=== PATIENT | male | born 1995 | race Asian ===

== ENCOUNTER 2017-06-27 14:46 | Emergency (ER) | payer OTHER ==
[~2017-06-27] VITALS: Ht 175.3 cm; Wt 77.8 kg
[2017-06-27 14:49] VITALS: TEMP 36.7; Ht 175.3 cm; Wt 77.8 kg
--- NOTE | 2017-06-27 15:23 | EMERGENCY ROOM VISIT NOTE ---
History Report prepared by Yasir: Nikita Ordaz Under the Supervision of: Dr. Henrique Shah M.D. First contact with patient: 15:10 Chief Complaint: SEIZURE Stated Complaint: SEIZURE Nursing Triage Summary: pt was found at side of road, seizure witnessed by a bystander. pt has hx of seizures, last one when pt in 4th grade. takes no seizure meds. pt has had a cough, states he was awake all night coughing then took dayquil today. remembers he was walking to a restaraunt. then nothing until als with pt.. 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 The patient reports that the last thing he remembers is walking to meet his friends at a restaurant. He notes that he could not sleep last night secondary to a severe cough. The patient reports taking DayQuil this morning. He notes feeling fine now, and denies injuring any part of his body while fainting. The patient notes a history of seizures which began when he was in 4th grade.The patient states that he used to take Trileptal for seizures, but notes that he is not currently taking seizure medication. He denies experiencing any headaches, vision changes , neck pain, chest pain, shortness of breath, abdominal pain, or biting his tongue during the incident. He also denies any other medical problems or taking any regular medications. Source of History: patient Onset: 1 hour ago Position: other (global ) Timing: resolved Associated Symptoms: + LOC, + cough, No headache, No neck pain, No chest pain, No SOB, No abdominal pain Note: Denies: Biting tongue during incident, vision changes. Review of Systems See HPI for pertinent positives & negatives. A total of 10 systems reviewed and were otherwise negative. Past Medical & Surgical Medical Problems: (1) Seizure Old medical records were reviewed. Nurse's notes were reviewed and I agree with. Family History Patient reports no known family medical history. Social History Smoking Status: Never Smoker Alcohol Use: none Housing Status: lives with roommate Occupation Status: student Current/Historical Medications Scheduled PRN Awrzisbqpkhabodr-Cwkpwsberq-Mb (Vicks Nyquil Cold & Flu), 2 CAP PO HS PRN for COLD SYMPTOMS Dextromethorphan-Phenylephrine (Vicks Dayquil Cold & Flu), 2 CAP PO DAILY PRN for COLD SYMPTOMS Allergies Coded Allergies: No Known Allergies (Unverified , 06/27/17) Physical Exam Vital Signs Date Time Temp Pulse Resp B/P (MAP) Pulse Ox O2 Delivery O2 Flow Rate FiO2 06/27/17 18:22 90 18 155/75 97 Room Air 06/27/17 16:23 100 16 133/80 98 Room Air 06/27/17 15:11 105 06/27/17 14:49 36.7 108 18 147/78 96 Room Air Physical Exam General: Non-ill appearing young male in no acute distress. HEENT: Normal cephalic atraumatic. Pupils are equal round and reactive to light. Extraocular movements are intact. Oropharynx is pink with moist mucous membranes. No swelling of the mouth lips or tongue. Neck: Supple with a midline trachea. No meningeal signs or stiffness, no JVD or bruits. No Stridor. Chest: Clear to auscultation bilaterally. No wheezes or rhonchi. No increased work of breathing. Heart: regular rate and rhythm. Abdomen: Soft nontender, nondistended without rebound guarding or rigidity. Extremities: No cyanosis clubbing or edema. No calf tenderness or assymetry Spine/Back. Non tender to palpation. No CVA tenderness Skin: Good turgor without rashes. Neurologic exam: Cranial nerves two through 12 are intact. Motor and sensation are intact and symmetrical throughout. No tremor, finger nose intact. Medical Decision & Procedures ER Provider Diagnostic Interpretation: Radiology results as stated below per my review and radiologist interpretation: [~ rep ct add3]] CHEST ONE VIEW PORTABLE CLINICAL HISTORY: CHEST PAIN pain COMPARISON STUDY: No previous studies for comparison. FINDINGS: The bones soft tissues and hemidiaphragms are normal. The cardiomediastinal silhouette is normal. The lungs are clear. The pulmonary vasculature is normal. IMPRESSION: Negative chest. HEAD WITHOUT CONTRAST (CT) CT DOSE: 537.48 mGy.cm HISTORY: Seizure. Trauma. seizure, fall TECHNIQUE: Multiaxial CT images of the head were performed without the use of intravenous contrast. A dose lowering technique was utilized adhering to the principles of ALARA. Comparison: None. Findings: Mild mucosal thickening of the ethmoid and maxillary sinuses. Mastoid air cells are clear. The calvarium and skull base are intact. The ventricles and sulci are within normal limits. There is no mass, hematoma, midline shift, or acute infarct. Impression: Mild mucosal thickening of the sinuses. Negative CT of the brain. The above report was generated using voice recognition software. It may contain grammatical, syntax or spelling errors. The above report was generated using voice recognition software. It may contain grammatical, syntax or spelling errors. Electronically signed by: Gopal Garces M.D. 06/27/2017 3:31 PM Dictated Date/Time: 06/27/2017 3:31 PM Laboratory Results 06/27/17 15:00 Red Blood Count 5.01, Mean Corpuscular Volume 91.8, Mean Corpuscular Hemoglobin 31.3, Mean Corpuscular Hemoglobin Concent 34.1, Mean Platelet Volume 11.5, Neutrophils (%) (Auto) 50.2, Lymphocytes (%) (Auto) 32.0, Monocytes (%) (Auto) 15.0, Eosinophils (%) (Auto) 2.2, Basophils (%) (Auto) 0.3, Neutrophils # (Auto ) 8.38, Lymphocytes # (Auto) 5.33, Monocytes # (Auto) 2.51, Eosinophils # (Auto ) 0.36, Basophils # (Auto) 0.05 06/27/17 15:00 Test 06/27/17 15:00 06/27/17 15:30 06/27/17 17:39 White Blood Count 16.68 K/uL (4.8-10.8) Red Blood Count 5.01 M/uL (4.7-6.1) Hemoglobin 15.7 g/dL (14.0-18.0) Hematocrit 46.0 % (42-52) Mean Corpuscular Volume 91.8 fL (80-100) Mean Corpuscular Hemoglobin 31.3 pg (25-34) Mean Corpuscular Hemoglobin Concent 34.1 g/dl (32-36) Platelet Count 288 K/uL (130-400) Mean Platelet Volume 11.5 fL (7.4-10.4) Neutrophils (%) (Auto) 50.2 % Lymphocytes (%) (Auto) 32.0 % Monocytes (%) (Auto) 15.0 % Eosinophils (%) (Auto) 2.2 % Basophils (%) (Auto) 0.3 % Neutrophils # (Auto) 8.38 K/uL (1.4-6.5) Lymphocytes # (Auto) 5.33 K/uL (1.2-3.4) Monocytes # (Auto) 2.51 K/uL (0.11-0.59) Eosinophils # (Auto) 0.36 K/uL (0-0.5) Basophils # (Auto) 0.05 K/uL (0-0.2) RDW Standard Deviation 41.9 fL (36.4-46.3) RDW Coefficient of Variation 12.5 % (11.5-14.5) Immature Granulocyte % (Auto) 0.3 % Immature Granulocyte # (Auto) 0.05 K/uL (0.00-0.02) Est Creatinine Clear Calc Drug Dose 64.6 ml/min Estimated GFR () 60.6 Estimated GFR (Non- 52.3 BUN/Creatinine Ratio 8.8 (10-20) Calcium Level 9.4 mg/dl (8.5-10.1) Total Bilirubin 2.2 mg/dl (0.2-1) Direct Bilirubin 0.3 mg/dl (0-0.2) Aspartate Amino Transf (AST/SGOT) 26 U/L (15-37) Alanine Aminotransferase (ALT/SGPT) 35 U/L (12-78) Alkaline Phosphatase 112 U/L (45-117) Total Protein 9.0 gm/dl (6.4-8.2) Albumin 4.5 gm/dl (3.4-5.0) Lipase 76 U/L (73-393) Bedside Troponin I < 0.030 ng/ml (0-0.045) Bedside Hemoglobin 12.9 g/dl (14.0-18.0) Bedside Hematocrit 38 % (42-52) Bedside Sodium 139 mEq/L (135-144) Bedside Potassium 3.5 mEq/L (3.3-5.0) Bedside Chloride 104 mEq/L (101-112) Bedside Total CO2 22 mEq/l (24-31) Anion Gap 18.0 mmol/L (16-25) Bedside Blood Urea Nitrogen 14 mg/dl (7-18) Bedside Creatinine 1.0 mg/dl (0.6-1.3) Bedside Glucose (other) 83 mg/dl (70-99) Bedside Ionized Calcium (Hira) 1.12 mmol/l (1.12-1.32) Laboratory studies as stated above per my review. Medications Administered Medications (Trade) Dose Ordered Sig/Tricia Route Start Time Stop Time Status Last Admin Dose Admin Sodium Chloride 1,000 ml @ 999 mls/hr Q1H1M STAT IV 06/27/17 16:25 06/27/17 17:25 DC 06/27/17 16:38 999 MLS/HR ECG Per My Interpretation Rate (beats per minute): 94 Rhythm: normal sinus Findings: no acute ischemic change, no ectopy, other (Sinus arrythmia) ED Course 1510: Past medical records reviewed. The patient was evaluated in room A2, and a complete history and physical examination were performed. 1625: Ordered Sodium Chloride 1000 ml @ 999 mls/hr IV 1614: I reevaluated the patient. He is resting comfortably. 1630: I reevaluated the patient. He is non-ill appearing and talking on his cell phone. 1631: I discussed the patient's case with Dr. Christensen- [facility]. He states that he would not start the patient on anti-seizure medication at this time and would like to treat the patient as an outpatient. 1700: I reevaluated the patient. He is currently receiving fluids and resting. 1800: I reevaluated the patient. He is doing fine and is presently asymptomatic. I informed him that he cannot perform any activities where he could injure himself or others including driving. I sent the patient's paperwork to [facility]. 1801: Upon reevaluation, the patient is resting comfortably. I discussed the results and treatment plan with him. He verbalized agreement of the treatment plan. The patient was discharged home. Medical Decision Differentials include, but are not limited to; seizure, syncope, cardiac disease , arrhythmia, electrolyte or metabolic abnormality. This patient comes in as described above. He was treated for seizures for about 2 years in fourth grade. Has not had one since then. He stayed up all night because he was coughing and did not sleep. He apparently had a seizure today it was witnessed by somebody when he is walking. He does not recall what happened. IV access was established and blood work was obtained. seizure precautions were applied. he has remained stable and had no seizures while observed in the ER for over 3 hours. His initial blood work showed a low CO2 and high creatinine as well as a high white count. I hydrated him after this I recheck this on the i-STAT and these had normalized. I think this was from probably dehydration and a seizure because in the low CO2. He is asymptomatic and feels great. CAT scan of his head is unremarkable. I think his seizure was precipitated by standing up. I discussed case with Dr. Lombardo, the neurologist on-call he did not recommend loading him with antiepileptics at this point but feels he should be follow-up in the office for further workup. I gave him Dr. Lombardo's number and contact information. I also filled out the handout form and told the patient he cannot drive in until he is seizure free and cleared by neurology. He is to avoid any other activities such as swimming and driving where he could hurt himself or others if he had a seizure. He was encouraged to return if he has recurrence of symptoms, fever or chills, any new problems or concerns. He is happy to plan and discharged to home. Medication Reconcilliation Current Medication List: was personally reviewed by me Blood Pressure Screening Patient's blood pressure: Elevated blood pressure Blood pressure disposition: Elevated BP felt to be situational Consults Time Called: 1625 Consulting Physician: Dr. Montez [facility] Returned Call: 1631 I discussed the patient's case with Dr. Montez [facility]. He states that he would not start the patient on anti-seizure medication at this time and would like to treat the patient as an outpatient. Impression Primary Impression: Seizure Scribe Attestation The scribe's documentation has been prepared under my direction and personally reviewed by me in its entirety. I confirm that the note above accurately reflects all work, treatment, procedures, and medical decision making performed by me. Departure Information Dispostion Home / Self-Care Referrals No Doctor, Assigned (PCP) Forms HOME CARE DOCUMENTATION FORM, IMPORTANT VISIT INFORMATION Patient Instructions My [facility] Additional Instructions Rest. Drink plenty of fluids. Avoid any further activities where if he had a seizure you could hurt yourself or others, this would include swimming or driving. Follow-up with neurology Dr. Lombardo this week for recheck Return to the ER if worsening symptoms, any new problems or concerns, further seizure
[2017-06-27 15:26] LABS: HEMOGLOBIN 15.7 g/dL (14.0-18.0); MEAN CELL VOLUME 91.8 fL (80-100); MEAN CORPUSCULAR HEMOGLOBIN 31.3 pg (25-34); MEAN CORPUSCULAR HGB CONC 34.1 g/dl (32-36); MEAN PLATELET VOLUME 11.5 fL (7.4-10.4); PLATELET COUNT 288 K/uL (130-400); RED CELL DISTRIBUTION WIDTH CV 12.5 % (11.5-14.5); RED CELL DISTRIBUTION WIDTH SD 41.9 fL (36.4-46.3); WHITE BLOOD COUNT 16.68 K/uL (4.8-10.8)
--- NOTE | 2017-06-27 15:32 | DIAGNOSTIC IMAGING REPORT ---
CHEST ONE VIEW PORTABLE CLINICAL HISTORY: CHEST PAIN pain COMPARISON STUDY: No previous studies for comparison. FINDINGS: The bones soft tissues and hemidiaphragms are normal. The cardiomediastinal silhouette is normal. The lungs are clear. The pulmonary vasculature is normal. IMPRESSION: Negative chest. The above report was generated using voice recognition software. It may contain grammatical, syntax or spelling errors. Electronically signed by: Gopal Garces M.D. 06/27/2017 3:31 PM Dictated Date/Time: 06/27/2017 3:31 PM
--- NOTE | 2017-06-27 15:52 | DIAGNOSTIC IMAGING REPORT ---
HEAD WITHOUT CONTRAST (CT) CT DOSE: 537.48 mGy.cm HISTORY: Seizure. Trauma. seizure, fall TECHNIQUE: Multiaxial CT images of the head were performed without the use of intravenous contrast. A dose lowering technique was utilized adhering to the principles of ALARA. Comparison: None. Findings: Mild mucosal thickening of the ethmoid and maxillary sinuses. Mastoid air cells are clear. The calvarium and skull base are intact. The ventricles and sulci are within normal limits. There is no mass, hematoma, midline shift, or acute infarct. Impression: Mild mucosal thickening of the sinuses. Negative CT of the brain. The above report was generated using voice recognition software. It may contain grammatical, syntax or spelling errors. Electronically signed by: Gopal Garces M.D. 06/27/2017 3:50 PM Dictated Date/Time: 06/27/2017 3:49 PM
[2017-06-27 15:55] LABS: ALBUMIN 4.5 gm/dl (3.4-5.0); CALCIUM 9.4 mg/dl (8.5-10.1); CREATININE 1.81 mg/dl (0.60-1.40)
[2017-06-27 16:01] LABS: POTASSIUM 3.8 mmol/L (3.5-5.1)
[2017-06-27 16:17] LABS: BASO % 0.3 %; BASO ABS # 0.05 K/uL (0-0.2); EOS % 2.2 %; EOS ABS # 0.36 K/uL (0-0.5); IG# 0.05 K/uL (0.00-0.02); LYMPH ABS # 5.33 K/uL (1.2-3.4); MONO ABS # 2.51 K/uL (0.11-0.59); NEUT % 50.2 %; NEUT ABS # 8.38 K/uL (1.4-6.5)
[2017-06-27] MEDS ORDERED: SODIUM CHLORIDE 0.9% 1000ML 1,000 ML IV STA (16:25)
[2017-06-27] MEDS ORDERED: DEXT1CAP9 PO (16:57)
[2017-06-27] MEDS ORDERED: DEXT1CAP8 PO (17:00)
[2017-06-27 17:53] LABS: ISTAT IONIZED CALCIUM 1.12 mmol/l (1.12-1.32); ISTAT POTASSIUM 3.5 mEq/L (3.3-5.0)
[2017-06-27 18:22] VITALS: BP 155/75; PULSE 90; O2SAT 97
== END 2017-06-27 18:25 | disposition home or self-care (01) ==
LOC: EDBD 14:46 → C.EDA 14:49
DX: R56.9 Unspecified convulsions (principal)

== ENCOUNTER 2017-11-01 11:39 | Emergency (ER) | payer BC ==
[~2017-11-01] VITALS: Ht 177.8 cm; Wt 88.8 kg
[~2017-11-01 11:39] MED LIST: DEXT1CAP8 PO; DEXT1CAP9 PO
[2017-11-01 11:40] VITALS: TEMP 37; Ht 177.8 cm; Wt 88.8 kg
[2017-11-01 12:10] LABS: HEMATOCRIT 46.5 % (42-52); HEMOGLOBIN 15.1 g/dL (14.0-18.0); MEAN CELL VOLUME 94.9 fL (80-100); MEAN CORPUSCULAR HEMOGLOBIN 30.8 pg (25-34); MEAN CORPUSCULAR HGB CONC 32.5 g/dl (32-36); MEAN PLATELET VOLUME 12.1 fL (7.4-10.4); PLATELET COUNT 253 K/uL (130-400); RED CELL DISTRIBUTION WIDTH CV 12.3 % (11.5-14.5); RED CELL DISTRIBUTION WIDTH SD 42.5 fL (36.4-46.3); WHITE BLOOD COUNT 11.83 K/uL (4.8-10.8)
[2017-11-01 12:36] LABS: ALBUMIN 4.1 gm/dl (3.4-5.0); CALCIUM 9.1 mg/dl (8.5-10.1); CREATININE 1.37 mg/dl (0.60-1.40); POTASSIUM 3.8 mmol/L (3.5-5.1); TOTAL PROTEIN 8.5 gm/dl (6.4-8.2)
[2017-11-01 13:23] LABS: BASO % 0.3 %; BASO ABS # 0.04 K/uL (0-0.2); EOS % 3.6 %; EOS ABS # 0.42 K/uL (0-0.5); IG# 0.03 K/uL (0.00-0.02); LYMPH % 51.2 %; LYMPH ABS # 6.06 K/uL (1.2-3.4); MONO % 8.7 %; MONO ABS # 1.03 K/uL (0.11-0.59); NEUT % 35.9 %; NEUT ABS # 4.25 K/uL (1.4-6.5)
[2017-11-01] MEDS ORDERED: LEVETIRACETAM 500 MG TAB PO ONE (13:45)
[2017-11-01] MEDS ORDERED: LEVE500T13 PO (14:09)
--- NOTE | 2017-11-01 14:10 | EMERGENCY ROOM VISIT NOTE ---
History Report prepared by Yasir: Josue Hall Under the Supervision of: Dr. Mikael Phan D.O. First contact with patient: 12:21 Chief Complaint: SEIZURE Stated Complaint: SEIZURES History of Present Illness The patient is a 22 year old male who presents to the Emergency Room with complaints of an episode of a seizure occurring this morning. Per nursing report , the patient had a tonic-clonic seizure today in the dining murry. The report states that the patient's episode lasted for two minutes. The patient notes that he currently feels fine but is tired. He also complains of biting his tongue. He denies any incontinence, headache, sleep issues, recent illness, and recent alcohol use. He reports that he has a history of seizures but is not taking any medication. He states that his last seizure was in the last week of June,. He notes that at that time he was drinking alcohol and did not get much sleep, which might have caused his symptoms. He reports that before his seizure in June, his last seizure was when he was in 4th grade. Source of History: patient, other (nursing report) Onset: this morning Position: other (generalized) Quality: other (seizure) Timing: other (an episode) Associated Symptoms: No headache Note: The patient also complains of biting his tongue and feeling tired. He denies any incontinence and sleep issues. Review of Systems See HPI for pertinent positives & negatives. A total of 10 systems reviewed and were otherwise negative. Past Medical & Surgical Medical Problems: (1) Seizure Family History Patient reports no known family medical history. Social History Smoking Status: Never Smoker Alcohol Use: none Marital Status: single Housing Status: lives with roommate Occupation Status: student Current/Historical Medications Scheduled Levetiracetam (Keppra), 1 TAB PO BID Allergies Coded Allergies: No Known Allergies (Unverified , 11/01/17) Physical Exam Vital Signs Date Time Temp Pulse Resp B/P (MAP) Pulse Ox O2 Delivery O2 Flow Rate FiO2 11/01/17 13:59 94 16 133/82 98 Room Air 11/01/17 13:00 100 20 136/84 99 Room Air 11/01/17 12:13 110 11/01/17 11:40 37.0 116 25 149/81 96 Room Air Physical Exam CONSTITUTIONAL/VITAL SIGNS: Reviewed / noted above. GENERAL: Non-toxic in appearance. INTEGUMENTARY: Warm, dry, and [place]. HEAD: Normocephalic. EYES: without scleral icterus or trauma. ENT/OROPHARYNX: clear and moist. Contusion to the tip of the tongue. LYMPHADENOPATHY/NECK: Is supple without lymphadenopathy or meningismus. RESPIRATORY: Lungs clear and equal. CARDIOVASCULAR: Regular rate and rhythm. GI/ABDOMEN: Soft and nontender. No organomegaly or pulsatile mass. No rebound or guarding. Normal bowel sounds. EXTREMITIES: Warm and well perfused. BACK: No CVA tenderness. NEUROLOGICAL: Intact without focal deficits. PSYCHIATRIC: normal affect. MUSCULOSKELETAL: Normally developed with good muscle tone. Medical Decision & Procedures Laboratory Results 11/01/17 11:29 Red Blood Count 4.90, Mean Corpuscular Volume 94.9, Mean Corpuscular Hemoglobin 30.8, Mean Corpuscular Hemoglobin Concent 32.5, Mean Platelet Volume 12.1, Neutrophils (%) (Auto) 35.9, Lymphocytes (%) (Auto) 51.2, Monocytes (%) (Auto) 8.7, Eosinophils (%) (Auto) 3.6, Basophils (%) (Auto) 0.3, Neutrophils # (Auto) 4.25, Lymphocytes # (Auto) 6.06, Monocytes # (Auto) 1.03, Eosinophils # (Auto) 0.42, Basophils # (Auto) 0.04 11/01/17 11:29 Test 11/01/17 11:29 White Blood Count 11.83 K/uL (4.8-10.8) Red Blood Count 4.90 M/uL (4.7-6.1) Hemoglobin 15.1 g/dL (14.0-18.0) Hematocrit 46.5 % (42-52) Mean Corpuscular Volume 94.9 fL (80-100) Mean Corpuscular Hemoglobin 30.8 pg (25-34) Mean Corpuscular Hemoglobin Concent 32.5 g/dl (32-36) Platelet Count 253 K/uL (130-400) Mean Platelet Volume 12.1 fL (7.4-10.4) Neutrophils (%) (Auto) 35.9 % Lymphocytes (%) (Auto) 51.2 % Monocytes (%) (Auto) 8.7 % Eosinophils (%) (Auto) 3.6 % Basophils (%) (Auto) 0.3 % Neutrophils # (Auto) 4.25 K/uL (1.4-6.5) Lymphocytes # (Auto) 6.06 K/uL (1.2-3.4) Monocytes # (Auto) 1.03 K/uL (0.11-0.59) Eosinophils # (Auto) 0.42 K/uL (0-0.5) Basophils # (Auto) 0.04 K/uL (0-0.2) RDW Standard Deviation 42.5 fL (36.4-46.3) RDW Coefficient of Variation 12.3 % (11.5-14.5) Immature Granulocyte % (Auto) 0.3 % Immature Granulocyte # (Auto) 0.03 K/uL (0.00-0.02) Anion Gap 26.0 mmol/L (3-11) Est Creatinine Clear Calc Drug Dose 94.9 ml/min Estimated GFR () 84.3 Estimated GFR (Non- 72.7 BUN/Creatinine Ratio 13.4 (10-20) Calcium Level 9.1 mg/dl (8.5-10.1) Total Bilirubin 0.8 mg/dl (0.2-1) Aspartate Amino Transf (AST/SGOT) 23 U/L (15-37) Alanine Aminotransferase (ALT/SGPT) 40 U/L (12-78) Alkaline Phosphatase 87 U/L (45-117) Total Protein 8.5 gm/dl (6.4-8.2) Albumin 4.1 gm/dl (3.4-5.0) Globulin 4.4 gm/dl (2.5-4.0) Albumin/Globulin Ratio 0.9 (0.9-2) .Laboratory results as stated above per my review. Medications Administered Medications (Trade) Dose Ordered Sig/Tricia Route Start Time Stop Time Status Last Admin Dose Admin Levetiracetam (Keppra Tab) 500 mg ONE ONCE PO 11/01/17 13:45 11/01/17 13:46 DC 11/01/17 13:58 500 MG ECG Per My Interpretation Indication: weakness Rate (beats per minute): 106 Rhythm: sinus tachycardia Findings: no ectopy, other (No ST elevation) ED Course 1227: Previous medical records were reviewed. The patient was evaluated in room B2. A complete history and physical examination was performed. 1321: I discussed the patient's case with Dr. Lombardo - Neurology, [facility]. 1328: I reevaluated and updated the patient. 1345: Keppra Tab 500mg PO 1411: On reevaluation, the patient is stable. I discussed the results and findings with the patient. He verbalized agreement of the treatment plan. The patient was discharged home. Medical Decision Differential diagnosis: Etiologies such as infection, hypoglycemia, electrolyte abnormalities, cardiac sources, intracerebral event, trauma, toxicologic, neurologic, as well as others were entertained. This is a 22-year-old male who presents to the ED with a chief complaint of a seizure. The patient had a tonic-clonic seizure today. Details of the seizure are unclear since no one presented with the patient. The patient is a student and this occurred in the cafeteria. He was brought here by EMS. The patient did bite the tip of his tongue. It does not require repair. It is just a contusion. He otherwise states that he is fine and he was awake, alert and oriented. He does report his last seizure was in June. At that time he reported that his seizure was related to having a cold, taking some NyQuil and drinking alcohol. The patient does have a history of seizures when he was 4 years old and he was on antiseizure medication until 6 years old. Since 6 years old until last June, he was seizure-free. The patient has no complaints at this time. The patient's blood work reveals some hyperglycemia as well as low bicarb. This is likely related to the stress from the seizure. I spoke with Dr. Lombardo who recommended the patient be started on Keppra. 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 He was started on Keppra 500 mg twice daily. He was advised not to drive until cleared by neurology. He was felt to be stable for discharge. Medication Reconcilliation Current Medication List: was personally reviewed by me Blood Pressure Screening Patient's blood pressure: Elevated blood pressure Blood pressure disposition: Elevated BP felt to be situational Consults Time Called: 1317 Consulting Physician: Dr. Lombardo - Neurology, [facility] Returned Call: 1321 I discussed the patient's case with Dr. Munira Jain Neurology, [facility]. Impression Primary Impression: Seizure Scribe Attestation The scribe's documentation has been prepared under my direction and personally reviewed by me in its entirety. I confirm that the note above accurately reflects all work, treatment, procedures, and medical decision making performed by me. Departure Information Dispostion Home / Self-Care Prescriptions Levetiracetam (KEPPRA) 500 Mg Tab 1 TAB PO BID for 30 Days, #60 TAB 0 Refills Prov: Mikael Phan D.O. 11/01/17 Referrals No Doctor, Assigned (PCP) Henrique Lombardo M.D. Forms HOME CARE DOCUMENTATION FORM, IMPORTANT VISIT INFORMATION Patient Instructions My [facility] Additional Instructions Take Keppra twice a day as prescribed. No driving until cleared by neurology. Follow-up with neurologist, Dr. Lombardo, for further evaluation of your seizure disorder. Call tomorrow for an appointment. Return to the emergency department for worsening or new symptoms or any concerns. You have been examined and treated today on an emergency basis only. This is not a substitute for, or an effort to provide, complete comprehensive medical care. It is impossible to recognize and treat all injuries or illnesses in a single emergency department visit. It is therefore important that you follow up closely with your doctor. Call as soon as possible for an appointment.
[2017-11-01 14:30] VITALS: BP 151/90; PULSE 85; O2SAT 100
== END 2017-11-01 14:42 | disposition home or self-care (01) ==
LOC: EDBD 11:39 → C.EDB 11:40
DX: R56.9 Unspecified convulsions (principal); R73.9 Hyperglycemia, unspecified